=== PATIENT | male | born 1995 | race Caucasian/White ===

== ENCOUNTER 2019-09-03 10:07 | Inpatient (IN) ==
[2019-09-03 11:52] LABS: Urine Appearance Clear; Urine Bilirubin Negative (Negative); Urine Blood Negative (Negative); Urine Color Colorless; Urine Glucose Negative (Negative); Urine Ketones Negative (Negative); Urine Nitrite Negative (Negative); Urine Protein Negative (Negative); Urine Specific Gravity 1.002 (1.010-1.030); Urine Urobilinogen Negative (Negative)
[2019-09-03 12:05] LABS: Urine Benzodiazepine Screen None Detected (None Detect); Urine Opiates Screen None Detected (None Detect)
[2019-09-03 13:06] LABS: ABS Lymphocytes 1.5 10^3/ul (1.0-4.8); ABS Monocytes 0.4 10^3/ul (0-0.8); Eosinophil % 0.5 %; Hematocrit 47 % (42-52); Hemoglobin 16.2 g/dL (14.0-18.0); Lymphocyte % 26.7 %; Mean Corpuscular HGB Conc 34 g/dL (31-36); Mean Corpuscular Hemoglobin 28 pg (27-31); Mean Corpuscular Volume 81 fL (80-94); Mean Platelet Volume 8.8 fL (7.4-10.4); Nucleated Red Blood Cells % 0.1; Platelet Count 216 10^3/uL (150-450); Red Blood Count 5.79 10^6 /uL (4.18-5.48); Red Cell Distribution Width 14 % (10-15); White Blood Count 5.8 10^3/uL (3.5-10.8)
[2019-09-03 13:25] LABS: ALT 10 U/L (7-52); AST 10 U/L (13-39); Albumin 4.7 g/dL (3.2-5.2); Alkaline Phosphatase 77 U/L (34-104); Anion Gap 6 mmol/L (2-11); Blood Urea Nitrogen 8 mg/dL (6-24); CO2 Carbon Dioxide 27 mmol/L (22-32); Calcium 9.5 mg/dL (8.6-10.3); Chloride 107 mmol/L (101-111); EGFR African American 147.7 (>60); Globulin 2.4 g/dL (2-4); Glucose 97 mg/dL (70-100); Sodium 140 mmol/L (135-145); Total Protein 7.1 g/dL (6.4-8.9)
[2019-09-03 13:27] LABS: Acetaminophen < 15 mcg/mL; Alcohol, S < 10 mg/dL (<10); Salicylate < 2.50 mg/dL (<30)
[2019-09-03 13:40] LABS: TSH (Thyroid Stimulating Horm) 0.11 mcIU/mL (0.34-5.60)
[2019-09-03] MEDS ORDERED: Al Hydrox/Mg Hydrox/Simet LIQ 30 ML UDC PO PRN (15:00)
[2019-09-04] MEDS ORDERED: ESCITALOPRAM OXALATE 20 MG PO SCH (09:00)
[2019-09-04] MEDS: clonazePAM 0.5 mg TAB (*) PO SCH ×2 (13:16→20:07)
[2019-09-05] MEDS ORDERED: Lorazepam PYXIS KEY ONE (00:24)
[2019-09-05] MEDS: clonazePAM 0.5 mg TAB (*) PO SCH ×2 (08:06→21:02)
[2019-09-05 09:12] LABS: TSH (Thyroid Stimulating Horm) 0.21 mcIU/mL (0.34-5.60)
[2019-09-05 09:14] LABS: Free T3 3.4 pg/mL (2.5-3.9); Free T4 0.95 ng/dL (0.61-1.12)
[2019-09-06] MEDS: clonazePAM 0.5 mg TAB (*) PO SCH ×2 (08:08→21:04)
[2019-09-07] MEDS: clonazePAM 0.5 mg TAB (*) PO SCH (08:44)
[2019-09-07 09:11] VITALS: BP 98/64
== END 2019-09-07 13:00 | disposition home or self-care (01) | DRG 751 ==
LOC: ED 10:07 → BSU 19:34
PROVIDERS: ADMIT Psychiatry & Neurology Psychiatry; ATTEND Psychiatry & Neurology Psychiatry

== ENCOUNTER 2024-01-11 07:11 | Inpatient (IN) ==
[2024-01-11] MEDS ORDERED: Charcoal ACTIVATED 50 GM/240 ML BTL PO ONE (08:30)
[2024-01-11 08:34] LABS: Venous Bicarbonate HCO3 27.4 mmol/L (24-28)
[2024-01-11 08:37] LABS: ABS Lymphocytes 0.8 10^3/uL (1.0-4.8); ABS Monocytes 0.4 10^3/uL (0.0-1.1); ABS Neutrophils 8.8 10^3/uL (1.5-7.6); Eosinophil % 0.1 %; Hematocrit 42.8 % (38-53); Hemoglobin 14.4 g/dL (13.2-16.3); Lymphocyte % 7.9 %; Mean Corpuscular Hemoglobin 27.4 pg (27-33); Mean Corpuscular Hgb Conc 33.7 g/dL (31-36); Mean Corpuscular Volume 81.2 fL (80-97); Mean Platelet Volume 8.5 fL (7.5-11.2); Platelet Count 170 10^3/uL (150-450); Red Blood Count 5.26 10^6/uL (4.06-5.63); Red Cell Distribution Width 14.6 % (12-17); White Blood Count 10.1 10^3/uL (3.6-10.2)
[2024-01-11] MEDS: NS 0.9% 1000 ml BAG 1,000 ML IV SCH ×2 (08:50→17:07)
[2024-01-11] MEDS: Ondansetron 4 mg VIAL 2 MG/ML 2 ml VIAL IV ONE ×2 (08:50→11:22)
[2024-01-11 09:31] LABS: ALT 9 U/L (7-52); AST 13 U/L (13-39); Albumin 4.5 g/dL (3.2-5.2); Albumin/Globulin Ratio 2.1 (1-3); Alkaline Phosphatase 65 U/L (35-149); Anion Gap 5 mmol/L (2-16); Blood Urea Nitrogen 10 mg/dL (6-24); CO2 Carbon Dioxide 30 mmol/L (22-32); Calcium 9.4 mg/dL (8.6-10.3); Chloride 103 mmol/L (101-111); Creatinine, Serum 0.81 mg/dL (0.67-1.17); Globulin 2.1 g/dL (2-4); Glucose 94 mg/dL (70-100); Potassium 3.7 mmol/L (3.5-5.0); Sodium 138 mmol/L (135-145); Total Bilirubin 1.2 mg/dL (0.2-1.0); Total Protein 6.6 g/dL (6.4-8.9); eGFR CKD-EPI 124.7 (>60)
[2024-01-11] MEDS: Charcoal ACTIVATED 25 GM/120 ML BTL PO ONE (09:46)
[2024-01-11] MEDS: Charcoal ACTIVATED 50 GM/240 ML BTL PO ONE (09:46)
[2024-01-11 09:53] LABS: Acetaminophen < 15 mcg/mL; Alcohol, S < 13 mg/dL (<13); Lithium 2.93 mmol/L (0.6-1.2); Salicylate < 2.50 mg/dL (<30)
[2024-01-11 11:16] LABS: Urine Appearance Turbid; Urine Bilirubin Negative (Negative); Urine Blood Negative (Negative); Urine Color Light-Yellow; Urine Glucose Negative (Negative); Urine Ketones Negative (Negative); Urine Nitrite Negative (Negative); Urine Protein Negative (Negative); Urine Specific Gravity 1.012 (1.002-1.030); Urine Urobilinogen Negative (Negative); Urine pH 8.5 (5.0-8.0)
[2024-01-11] MEDS: Acetaminophen IV 1 GM/100ML 1,000 MG/100 ML BAG IV ONE (11:22)
[2024-01-11 12:17] LABS: Urine Benzodiazepine Screen None Detected (None Detect); Urine Cannabinoids Screen Presumptive Positive (None Detect); Urine Opiates Screen None Detected (None Detect)
[2024-01-11] MEDS ORDERED: NS 0.9% 1000 ml BAG 100 ML IV PRN (14:09)
[2024-01-11] MEDS ORDERED: NS 0.9% 1000 ml BAG 200 ML IV PRN (14:09)
[2024-01-11 14:21] LABS: Magnesium 2.2 mg/dL (1.9-2.7); Phosphorus 1.9 mg/dL (2.5-5.0)
[2024-01-11] MEDS: Heparin 1,000 UNIT/ML 10 ml (10,000 UNITS) CATHLAB/DIALYSIS DIALYSIS PRN (14:55)
[2024-01-11] MEDS: Albumin Human 25% 25 GM/100 ML BTL IV PRN (14:56)
[2024-01-11 14:59] LABS: Lipase 12 U/L (11.0-82.0)
[2024-01-11 16:07] LABS: TSH Ultra Thyroid Stim Horm 0.15 mcIU/mL (0.34-5.60)
[2024-01-11 16:39] LABS: INR 1.08 (0.85-1.14)
[2024-01-11] MEDS: Pantoprazole VIAL 40 MG VIAL IV SCH (17:07)
[2024-01-11] MEDS: Enoxaparin 40 MG/0.4 ML SYR SUBCUT SCH (17:07)
[2024-01-11] MEDS: Acetaminophen IV 1 GM/100ML 1,000 MG/100 ML BAG IV PRN (17:22)
[2024-01-11 17:26] LABS: Hepatitis B Surface Antigen Nonreactive (Nonreactive)
[2024-01-11 17:43] LABS: Hepatitis B Surface Ab Not Immune (Immune)
[2024-01-11] MEDS: Ondansetron 4 mg VIAL 2 MG/ML 2 ml VIAL IV PRN (19:19)
[2024-01-11 20:13] LABS: Albumin 4.6 g/dL (3.2-5.2); Albumin/Globulin Ratio 2.4 (1-3); Calcium 9.5 mg/dL (8.6-10.3); Creatinine, Serum 0.62 mg/dL (0.67-1.17); Globulin 1.9 g/dL (2-4); Potassium 3.3 mmol/L (3.5-5.0); Total Bilirubin 1.6 mg/dL (0.2-1.0); Total Protein 6.5 g/dL (6.4-8.9); eGFR CKD-EPI 135.2 (>60)
[2024-01-11 21:17] LABS: Magnesium 1.6 mg/dL (1.9-2.7); Phosphorus 2.3 mg/dL (2.5-5.0)
[2024-01-11] MEDS: Magnesium Sulf 4 GM/100 ML IV 4,000 MG/100 ML BAG IVPB ONE (21:50)
[2024-01-11] MEDS: KCL 20 MEQ/100 ML IVPREMIX 20 MEQ/100 ML BAG IV SCH (21:54)
[2024-01-11 23:17] LABS: Free T4 1.22 ng/dL (0.61-1.12)
[2024-01-12 04:54] LABS: ABS Lymphocytes 0.8 10^3/uL (1.0-4.8); ABS Monocytes 0.6 10^3/uL (0.0-1.1); ABS Neutrophils 10.2 10^3/uL (1.5-7.6); Eosinophil % 0.1 %; Hematocrit 40.6 % (38-53); Hemoglobin 13.5 g/dL (13.2-16.3); Lymphocyte % 7.1 %; Mean Corpuscular Hemoglobin 27.2 pg (27-33); Mean Corpuscular Hgb Conc 33.2 g/dL (31-36); Mean Corpuscular Volume 81.8 fL (80-97); Mean Platelet Volume 8.5 fL (7.5-11.2); Platelet Count 165 10^3/uL (150-450); Red Blood Count 4.96 10^6/uL (4.06-5.63); Red Cell Distribution Width 14.4 % (12-17); White Blood Count 11.6 10^3/uL (3.6-10.2)
[2024-01-12 04:58] LABS: Hepatitis C Antibody Negative (Negative)
[2024-01-12 05:25] LABS: Albumin 4.6 g/dL (3.2-5.2); Albumin/Globulin Ratio 2.7 (1-3); Calcium 9.3 mg/dL (8.6-10.3); Creatinine, Serum 0.96 mg/dL (0.67-1.17); Globulin 1.7 g/dL (2-4); Magnesium 3.2 mg/dL (1.9-2.7); Potassium 3.7 mmol/L (3.5-5.0); Total Bilirubin 1.2 mg/dL (0.2-1.0); Total Protein 6.3 g/dL (6.4-8.9); eGFR CKD-EPI 111.8 (>60)
[2024-01-12 05:40] LABS: Lithium 2.48 mmol/L (0.6-1.2)
[2024-01-12 08:35] LABS: Free T3 2.99 pg/mL (2.5-3.9)
[2024-01-12] MEDS: Lactated Ringers 1000 ml BAG 1,000 ML IV ONE (08:37)
[2024-01-12] MEDS: NS 0.9% 1000 ml BAG 1,000 ML IV SCH (10:20)
[2024-01-12] MEDS: KCL 10 MEQ/50 ML IVPREMIX 10 MEQ/50 ML BAG IV SCH (10:23)
[2024-01-12 23:27] LABS: Albumin 4.3 g/dL (3.2-5.2); Albumin/Globulin Ratio 2.7 (1-3); Calcium 9.2 mg/dL (8.6-10.3); Creatinine, Serum 0.73 mg/dL (0.67-1.17); Globulin 1.6 g/dL (2-4); Lithium 1.01 mmol/L (0.6-1.2); Potassium 3.1 mmol/L (3.5-5.0); Total Bilirubin 1.2 mg/dL (0.2-1.0); Total Protein 5.9 g/dL (6.4-8.9); eGFR CKD-EPI 128.7 (>60)
[2024-01-13] MEDS: KCL 20 MEQ/100 ML IVPREMIX 20 MEQ/100 ML BAG IV SCH (01:26)
[2024-01-13 05:10] LABS: ABS Eosinophils 0.2 10^3/uL (0.0-0.5); ABS Lymphocytes 1.5 10^3/uL (1.0-4.8); ABS Monocytes 0.5 10^3/uL (0.0-1.1); ABS Neutrophils 6.3 10^3/uL (1.5-7.6); Eosinophil % 1.8 %; Hematocrit 37.7 % (38-53); Hemoglobin 12.6 g/dL (13.2-16.3); Lymphocyte % 18.1 %; Mean Corpuscular Hemoglobin 27.3 pg (27-33); Mean Corpuscular Hgb Conc 33.3 g/dL (31-36); Mean Corpuscular Volume 82.1 fL (80-97); Mean Platelet Volume 8.7 fL (7.5-11.2); Platelet Count 131 10^3/uL (150-450); Red Cell Distribution Width 14.3 % (12-17); White Blood Count 8.5 10^3/uL (3.6-10.2)
[2024-01-13 05:27] LABS: Albumin 4.2 g/dL (3.2-5.2); Albumin/Globulin Ratio 2.8 (1-3); Calcium 9.3 mg/dL (8.6-10.3); Creatinine, Serum 0.7 mg/dL (0.67-1.17); Globulin 1.5 g/dL (2-4); Potassium 3.5 mmol/L (3.5-5.0); Total Bilirubin 1.2 mg/dL (0.2-1.0); Total Protein 5.7 g/dL (6.4-8.9); eGFR CKD-EPI 130.3 (>60)
[2024-01-13 07:40] LABS: Lithium 0.82 mmol/L (0.6-1.2)
[2024-01-13] MEDS: Potassium EFFERVES 25 meq TAB PO ONE (07:40)
[2024-01-13] MEDS: KCL 10 MEQ/50 ML IVPREMIX 10 MEQ/50 ML BAG IV SCH (07:49)
[2024-01-13] MEDS: Metoclopramide 5 MG/ML VIAL (10 mg) IV ONE (17:21)
[2024-01-14 03:46] LABS: ABS Eosinophils 0.4 10^3/uL (0.0-0.5); ABS Lymphocytes 2.1 10^3/uL (1.0-4.8); ABS Monocytes 0.6 10^3/uL (0.0-1.1); ABS Neutrophils 5.9 10^3/uL (1.5-7.6); ABS Nucleated RBC 0.01 10^3/ul; Eosinophil % 4.3 %; Hematocrit 39.2 % (38-53); Hemoglobin 13.1 g/dL (13.2-16.3); Lymphocyte % 22.9 %; Mean Corpuscular Hemoglobin 27.1 pg (27-33); Mean Corpuscular Hgb Conc 33.3 g/dL (31-36); Mean Corpuscular Volume 81.4 fL (80-97); Mean Platelet Volume 8.8 fL (7.5-11.2); Nucleated Red Blood Cells % 0.1 %/100WBC (0.0-0.8); Platelet Count 152 10^3/uL (150-450); Red Blood Count 4.82 10^6/uL (4.06-5.63); Red Cell Distribution Width 14.6 % (12-17)
[2024-01-14 03:47] LABS: Calcium 9.4 mg/dL (8.6-10.3); Creatinine, Serum 0.68 mg/dL (0.67-1.17); Magnesium 1.9 mg/dL (1.9-2.7); Potassium 3.4 mmol/L (3.5-5.0); eGFR CKD-EPI 131.5 (>60)
[2024-01-14] MEDS: Potassium Chloride LIQUID 20 MEQ/15 ML LIQUID PO ONE (06:31)
[2024-01-14 11:08] VITALS: BP 126/80
== END 2024-01-14 15:05 | disposition home or self-care (01) | DRG 812 ==
LOC: ED 07:11 → EDHOLD 13:16 → ICU 13:39
PROVIDERS: ADMIT Internal Medicine; ATTEND Internal Medicine